=== PATIENT | male | born 1960 | race Caucasian/White ===

== ENCOUNTER 2016-09-10 08:00 | Emergency (ER) | payer OTHER ==
[~2016-09-10] VITALS: Ht 165.1 cm; Wt 73.4 kg
[~2016-09-10 08:00] MED LIST: ESOM40GR PO
[2016-09-10 08:04] VITALS: TEMP 36.6; Ht 165.1 cm; Wt 73.4 kg
[2016-09-10] MEDS ORDERED: ONDANSETRON INJ 2 MG/ML 2 ML VIAL IV STA (08:15)
[2016-09-10] MEDS ORDERED: SODIUM CHLORIDE 0.9% 1000ML 1,000 ML IV STA (08:15)
[2016-09-10 08:27] LABS: BASO % 0.4 %; BASO ABS # 0.03 K/uL (0-0.2); COMPLETE YES; EOS % 2.4 %; HEMATOCRIT 44.9 % (42-52); IG% 0.1 %; LYMPH % 23.6 %; MEAN CELL VOLUME 95.5 fL (80-100); MEAN CORPUSCULAR HEMOGLOBIN 33.2 pg (25-34); MEAN CORPUSCULAR HGB CONC 34.7 g/dl (32-36); MEAN PLATELET VOLUME 9.8 fL (7.4-10.4); NEUT % 63.5 %; PLATELET COUNT 171 K/uL (130-400); WHITE BLOOD COUNT 6.77 K/uL (4.8-10.8)
[2016-09-10 08:51] LABS: BUN/CREATININE RATIO 12.8 (10-20); CALCIUM 8.9 mg/dl (8.5-10.1); CREATININE 0.79 mg/dl (0.60-1.40); POTASSIUM 4.4 mmol/L (3.5-5.1)
[2016-09-10] MEDS ORDERED: ESOM1CAP34 PO (09:09)
[2016-09-10] MEDS ORDERED: [UNRECOGNIZED DRUG - REMARK] PO (09:09)
--- NOTE | 2016-09-10 09:49 | EMERGENCY ROOM VISIT NOTE ---
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 last night I started with n/v/d and I want to make sure the c diff didnt come back again. I have been clear of c diff since the transplant History of Present Illness The patient is a 56 year old male who presents to the Emergency Room with complaints of nausea vomiting and diarrhea since 1 AM. The patient denies any abdominal pain or any fever. The patient denies any chest pain or shortness of breath. The patient denies any urinary symptoms of frequency, urgency, dysuria or hematuria. 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 He has been free of C. difficile since the transplant. The patient has an appointment with [facility] on October 16. The patient states that he has been around others with similar symptoms. He just wants to make sure that he does not have C. difficile. Review of Systems 10 system review was performed and was negative unless stated otherwise history of present illness. Past Medical/Surgical History Medical Problems: (1) Colonoscopy (2) Diverticulosis of sigmoid colon (3) Kidney stones (4) Laceration Surgical Problems: (1) History of cholecystectomy Fecal transplant Family History Cancer Kidney disease Kidney stones Social History Smoking Status: Current Some Day Smoker Alcohol Use: occasionally Drug Use: none Marital Status: Housing Status: lives with family Occupation Status: employed Current/Historical Medications Scheduled Esomeprazole Magnesium (Esomeprazole Magnesium), 40 MG PO QAM Probiotic Product (Probiotic), 1 CAP PO DAILY [Unk Gas-Relief Med], 1 TAB PO DAILY Allergies Coded Allergies: Iodinated Diagnostic Agents (Verified Allergy, Intermediate, GENERALIZED SWELLING, HIVES, 09/10/16) Metoclopramide (Verified Adverse Reaction, Unknown, MAKES "HYPER", 09/10/16 ) Physical Exam Vital Signs Date Time Temp Pulse Resp B/P Pulse Ox O2 Delivery O2 Flow Rate FiO2 09/10/16 08:04 36.6 72 18 112/72 99 Physical Exam GENERAL: 56 year white male appears in no acute distress. MENTAL Status: Alert and oriented 3. MOUTH: Mucosa is moist NECK: Supple, no lymphadenopathy noted. No carotid bruits noted. LUNGS: Clear auscultation without wheezes rales or rhonchi. CARDIAC: Regular rate and rhythm without murmur. Pulses is full and equal throughout. BACK: No CVA tenderness noted. ABDOMEN: Positive bowel sounds all 4 quadrants. Soft, nontender to palpation without organomegaly or masses. EXTREMITIES: No cyanosis or edema noted. Medical Decision & Procedures Laboratory Results 09/10/16 08:20 Red Blood Count 4.70, Mean Corpuscular Volume 95.5, Mean Corpuscular Hemoglobin 33.2, Mean Corpuscular Hemoglobin Concent 34.7, Mean Platelet Volume 9.8, Neutrophils (%) (Auto) 63.5, Lymphocytes (%) (Auto) 23.6, Monocytes (%) (Auto) 10.0, Eosinophils (%) (Auto) 2.4, Basophils (%) (Auto) 0.4, Neutrophils # (Auto ) 4.29, Lymphocytes # (Auto) 1.60, Monocytes # (Auto) 0.68, Eosinophils # (Auto ) 0.16, Basophils # (Auto) 0.03 09/10/16 08:20 Test 09/10/16 08:20 White Blood Count 6.77 K/uL (4.8-10.8) Red Blood Count 4.70 M/uL (4.7-6.1) Hemoglobin 15.6 g/dL (14.0-18.0) Hematocrit 44.9 % (42-52) Mean Corpuscular Volume 95.5 fL (80-100) Mean Corpuscular Hemoglobin 33.2 pg (25-34) Mean Corpuscular Hemoglobin Concent 34.7 g/dl (32-36) Platelet Count 171 K/uL (130-400) Mean Platelet Volume 9.8 fL (7.4-10.4) Neutrophils (%) (Auto) 63.5 % Lymphocytes (%) (Auto) 23.6 % Monocytes (%) (Auto) 10.0 % Eosinophils (%) (Auto) 2.4 % Basophils (%) (Auto) 0.4 % Neutrophils # (Auto) 4.29 K/uL (1.4-6.5) Lymphocytes # (Auto) 1.60 K/uL (1.2-3.4) Monocytes # (Auto) 0.68 K/uL (0.11-0.59) Eosinophils # (Auto) 0.16 K/uL (0-0.5) Basophils # (Auto) 0.03 K/uL (0-0.2) RDW Standard Deviation 42.5 fL (36.4-46.3) RDW Coefficient of Variation 12.2 % (11.5-14.5) Immature Granulocyte % (Auto) 0.1 % Immature Granulocyte # (Auto) 0.01 K/uL (0.00-0.02) Anion Gap 10.0 mmol/L (3-11) Est Creatinine Clear Calc Drug Dose 90.8 ml/min Estimated GFR () 116.3 Estimated GFR (Non- 100.4 BUN/Creatinine Ratio 12.8 (10-20) Calcium Level 8.9 mg/dl (8.5-10.1) Total Bilirubin 0.4 mg/dl (0.2-1) Direct Bilirubin 0.1 mg/dl (0-0.2) Aspartate Amino Transf (AST/SGOT) 19 U/L (15-37) Alanine Aminotransferase (ALT/SGPT) 23 U/L (12-78) Alkaline Phosphatase 68 U/L (45-117) Total Protein 7.3 gm/dl (6.4-8.2) Albumin 3.9 gm/dl (3.4-5.0) Lipase 151 U/L (73-393) Date/Time Source Procedure Growth Status 09/10/16 08:30 Stool C.difficile Toxin B Gene (PCR) - Final No C. difficile toxin B gene detected Complete Medications Administered Medications (Trade) Dose Ordered Sig/Kassie Route Start Time Stop Time Status Last Admin Dose Admin Ondansetron HCl 4 mg 4 mg NOW STAT IV 09/10/16 08:15 09/10/16 08:17 DC 09/10/16 08:25 4 MG Sodium Chloride (Nss 1000ml) 1,000 ml @ 999 mls/hr Q1H1M STAT IV 09/10/16 08:15 09/10/16 09:15 DC 09/10/16 08:26 999 MLS/HR ED Course The patient was evaluated. IV access was obtained. CBC and differential, renal profile, LFTs and lipase levels were ordered. The patient was given 1 L of normal saline wide-open. She was given Zofran 4 mg IV push for nausea. Stool for C. difficile was ordered. Labs are reviewed and were unremarkable. C. difficile was negative. The patient was informed of all findings and discharged home in stable condition. The patient stated that he has Zofran at home to take as needed for nausea. Medical Decision Differential diagnosis include C. difficile, viral gastroenteritis, bacterial gastroenteritis, acute appendicitis, acute cholecystitis, colitis Impression Primary Impression: Nausea, vomiting, and diarrhea Departure Information Dispostion Home / Self-Care Condition GOOD Referrals Kodak Betancourt M.D. (PCP) Forms HOME CARE DOCUMENTATION FORM, IMPORTANT VISIT INFORMATION Patient Instructions My [facility] Additional Instructions Stay well-hydrated. Follow bland diet. Advance diet slowly as tolerated. Take Zofran as needed for nausea. If symptoms persist or worsen, return to ER immediately.
[2016-09-10 09:52] VITALS: BP 113/80; PULSE 63; O2SAT 98
[2017-03-04] MEDS ORDERED: MISCCAP80 PO (09:59)
== END 2016-09-10 09:55 | disposition home or self-care (01) ==
LOC: C.EDB 08:02 → C.EDA 09:55
DX: R11.2 Nausea with vomiting, unspecified (principal); R19.7 Diarrhea, unspecified; F17.200 Nicotine dependence, unspecified, uncomplicated

== ENCOUNTER → 2016-09-18 | Outpatient (CLI) | payer OTHER ==
[~2016-09-18] MED LIST changes: +CEPH500C2 PO; +ESOM1CAP34 PO; -ESOM40GR PO; +MISCCAP80 PO; +MULT-920 PO; +NXM/40 PO; +PRT/40 PO; +SULF800T23 PO; +ULT50 PO; +[UNRECOGNIZED DRUG - REMARK] PO
--- NOTE | 2016-10-06 09:46 | CODING QUERY NO DIAGNOSIS ---
TREATMENT RENDERED WITHOUT A DIAGNOSIS Dr. Betancourt, To promote full compliance with coding requirements relating to patient care, physician participation is requested in all cases of stabber uncertainty. Please assist us with providing a diagnosis/symptom for the test(s) below: A diagnosis/symptom was not documented on your Order. A valid diagnosis/symptom is required to bill all insurances. Please remember that we are unable to code a diagnosis of rule out, probable, possible, questionable, or suspected. Tests that require a diagnosis: * URINE CULTURE DIAGNOSIS: DATE OF SERVICE: 09/18/16 Provider Signature: Date: Thank you [facility] Information Management Once completed, please kindly fax back to [phone] For questions please call [phone]
== END | disposition home or self-care (01) ==
LOC: C.LABSPEC 10:53
PROVIDERS: ATTEND Family Medicine
DX: R30.0 Dysuria (principal)

== ENCOUNTER 2016-12-09 09:14 | Emergency (ER) | payer OTHER ==
[~2016-12-09] VITALS: Ht 165.1 cm; Wt 73.0 kg
[~2016-12-09 09:14] MED LIST changes: -CEPH500C2 PO; -MISCCAP80 PO; -MULT-920 PO; -NXM/40 PO; -PRT/40 PO; -SULF800T23 PO; -ULT50 PO
[2016-12-09 09:16] VITALS: Ht 165.1 cm; Wt 73.0 kg
--- NOTE | 2016-12-09 09:57 | EMERGENCY ROOM VISIT NOTE ---
History Report prepared by Agusto: Tracy Bauer Under the Supervision of: Dr. Mike Dennis M.D. First contact with patient: 09:35 Chief Complaint: DIARRHEA Stated Complaint: DIARRHEA X4 DAYS Nursing Triage Summary: Pt. has had diarrhea since Sun. Hx. of C-Diff. "I want to make sure I don't have it back" History of Present Illness The patient is a 56 year old male who presents to the Emergency Room with complaints of persistent diarrhea for the past 3 days. The patient had part of his sigmoid colon removed in 2015 and has gotten C diff several times since. He has received a fecal transplant 6 months ago which helped. After having diarrhea for the past 3 days, he would like to be checked for C diff. His stool is very loose and watery. He has been trying to drink plenty of liquids. Source of History: patient Onset: 3 days ago Position: other (global) Quality: other (diarrhea) Timing: other (persistent) Review of Systems All systems have been listed, reviewed, and are negative other than those previously mentioned. Please see Additional Medical History Sheet. Past Medical & Surgical Medical Problems: (1) Colonoscopy (2) Diverticulosis of sigmoid colon (3) Kidney stones (4) Laceration Surgical Problems: (1) History of cholecystectomy Family History Cancer Kidney disease Kidney stones Social History Smoking Status: Current Some Day Smoker Alcohol Use: occasionally Drug Use: none Marital Status: Housing Status: lives with family Occupation Status: employed Current/Historical Medications Scheduled Esomeprazole Magnesium (Esomeprazole Magnesium), 40 MG PO QAM Probiotic Product (Probiotic), 1 CAP PO DAILY Allergies Coded Allergies: Iodinated Diagnostic Agents (Verified Allergy, Intermediate, GENERALIZED SWELLING, HIVES, 12/09/16) Metoclopramide (Verified Adverse Reaction, Unknown, MAKES "HYPER", 12/09/16 ) Physical Exam Vital Signs Date Time Temp Pulse Resp B/P Pulse Ox O2 Delivery O2 Flow Rate FiO2 12/09/16 12:56 36.8 68 16 128/82 98 12/09/16 10:51 72 16 115/78 97 Room Air 12/09/16 09:16 36.8 94 16 116/69 95 Room Air Physical Exam GENERAL: Patient awake, alert, oriented x 3. Patient follows commands. Patient does not appear toxic. Patient is adequately hydrated and well- nourished. SKIN: No erythema, pallor, cyanosis or rash HEENT: Normal head, pupils equal, reactive to light and accommodation. LUNGS: Clear to auscultation. No wheezes, no rales, no rhonchi. HEART: No murmurs. No gallops. No rubs ABDOMEN: No masses, no rebound, no hepatomegaly or splenomegaly. Well healed subumbilical scar. EXTREMITIES: No signs of trauma or infection. NEUROLOGIC: Cranial nerves II-XII within normal limits. No gross motor sensory function deficits. Medical Decision & Procedures Laboratory Results Date/Time Source Procedure Growth Status 12/09/16 09:45 Stool C.difficile Toxin B Gene (PCR) - Final No C. difficile toxin B gene detected Complete Laboratory results as stated above per my review. ED Course 0936: Past medical records reviewed. The patient was evaluated in room A3. A complete history and physical examination was performed. 1251: Upon reevaluation, the patient appeared to have improvement of his symptoms. I discussed today's findings with him. He verbalized agreement of the treatment plan. He was discharged home. Medical Decision Differential diagnoses: viral vs bacterial diarrhea vs C diff. The patient is here for the sole reason finding out if he has another bout of C. difficile. He has had multiple times in the past. Other than diarrhea the patient is feeling well. C. difficile antigen was negative. At this time I do not believe the patient requires any intervention. He was encouraged drink extra fluids and follow-up with his family physician. Impression Primary Impression: Diarrhea Scribe Attestation The scribe's documentation has been prepared under my direction and personally reviewed by me in its entirety. I confirm that the note above accurately reflects all work, treatment, procedures, and medical decision making performed by me. Departure Information Dispostion Home / Self-Care Referrals Kodak Betancourt M.D. (PCP) Patient Instructions My [facility] Additional Instructions Drink extra fluids. Follow-up with your family physician. Continue all of your current medications as prescribed.
[2016-12-09 12:56] VITALS: BP 128/82; PULSE 68; TEMP 36.8; O2SAT 98
[2017-03-04] MEDS ORDERED: MISCCAP80 PO (09:59)
[2017-03-11] MEDS ORDERED: PANT40TA2 PO (08:19)
== END 2016-12-09 12:58 | disposition home or self-care (01) ==
LOC: C.EDB 09:16 → C.EDA 12:58
DX: R19.7 Diarrhea, unspecified (principal); K57.30 Diverticulosis of large intestine without perforation or abscess without bleeding; F17.200 Nicotine dependence, unspecified, uncomplicated; Z87.442 Personal history of urinary calculi; Z90.49 Acquired absence of other specified parts of digestive tract; Z79.899 Other long term (current) drug therapy; Z80.9 Family history of malignant neoplasm, unspecified; Z84.1 Family history of disorders of kidney and ureter

== ENCOUNTER 2017-02-23 21:58 | Emergency (ER) | payer OTHER ==
[~2017-02-23] VITALS: Ht 165.1 cm; Wt 73.3 kg
[~2017-02-23 21:58] MED LIST changes: -[UNRECOGNIZED DRUG - REMARK] PO
[2017-02-23 22:03] VITALS: TEMP 36.6; Ht 165.1 cm; Wt 73.3 kg
[2017-02-23] MEDS ORDERED: MUPIROCIN 2% OINT 22 GM TUBE EXT STA (22:42)
--- NOTE | 2017-02-23 22:56 | EMERGENCY ROOM VISIT NOTE ---
ED Visit Note First contact with patient: 22:31 CHIEF COMPLAINT: Insect bite on back HISTORY OF PRESENT ILLNESS: This 56-year-old male patient presents to the emergency department 1.5 hours after experiencing a bite on his left lower back. The patient states this evening, he was mowing his bvminn-hy-cgy's grass. When he was getting out of the truck, he experienced a sharp, biting sensation, on his left lower back. He states he swatted at the area, and felt something large fly off of his shirt. He does believe he was bitten or stung through his shirt. The patient describes the pain as stabbing on palpation, but all otherwise. He rates the pain 3/10 at rest, and increases to 4/10 on palpation. The patient denies difficulty breathing, chest pain, drainage from the wound, significant pain or tenderness. The patient states he is concerned because he has not experienced a bite of that severity in a very long time. He is curious to know if we have any idea what may have bitten him REVIEW OF SYSTEMS: A 6-system review of systems was performed with positives and pertinent negatives listed in the history of present illness. All other systems were reviewed and are negative. ALLERGIES: Metoclopramide, contrast iodine MEDICATIONS: Probiotic, Nexium, tramadol PMH: This patient does have a history of C. difficile, several times in the past. He states his physicians believe the C. difficile was antibiotic associated. SOCIAL HISTORY: The patient lives locally with his family. He denies alcohol or drug use. The patient does admit to a occasional cigarette smoking. PHYSICAL EXAM: VITALS: Vitals are noted on the nurse's note and reviewed by myself. Vital signs stable. GENERAL: 56-year-old male, in no acute distress, nondiaphoretic, well-developed well-nourished. HEENT: Normocephalic, atraumatic, no facial edema. Lips, tongue, and mucosa normal. NECK: No stridor. RESPIRATORY: Clear to auscultation. No wheezes. CARDIAC: Regular rate, normal rhythm. SKIN: There is an erythematous, tender, indurated area located on the patient's left lower back. No significant rashes or urticaria noted. There is no stinger or obvious bite jeffrey. No purulent drainage or signs of infection. NEURO: Normal sensorium. EMERGENCY DEPARTMENT COURSE: She was seen and evaluated as above. I discussed with the patient options for treatment at this time. The patient does decline antibiotics orally due to his history of C. difficile infections. He is interested in topical antibiotic ointment, and states he will watch the wound extremely closely for signs of infection. I did also offer the patient a dose of Benadryl in the emergency department. He states this medication makes him too sleepy, and he would like to take Benadryl when he gets home just before bed. Mupirocin ointment was applied, and the patient was discharged home in good condition. DIFFERENTIAL DIAGNOSIS: Bee sting, spider bite, tick bite, other insect bite, cellulitis, allergic reaction, abscess, and others DIAGNOSIS: Insect bite DISCHARGE INSTRUCTIONS & TREATMENT: Take 25-50 mg of Benadryl when you get home this evening to help with swelling. You may continue to take Benadryl as directed if necessary for ongoing reaction. Use mupirocin ointment 3 times daily for 5-7 days until bite seems to have healed. Monitor the wound for increased redness, drainage, warmth, pus, abscess formation, or ulceration. If any of these occur, seek care by the emergency department or your family doctor. You should also watch for symptoms including fever, chills, nausea, vomiting, body aches, headache, confusion, altered mental status, difficulty breathing, facial swelling, racing heart, or other concerning symptoms. If any of these occur, please seek care in the emergency Department immediately. You should follow up with your family doctor in 2-3 days for ongoing care and repeat evaluation of the wound. Problem List Medical Problems: (1) Colonoscopy Status: Resolved (2) Diverticulosis of sigmoid colon Status: Chronic (3) Kidney stones Status: Chronic (4) Laceration Status: Resolved Surgical Problems: (1) History of cholecystectomy Status: Resolved Current/Historical Medications Scheduled Esomeprazole Magnesium (Nexium), 40 MG PO DAILY Probiotic Product (Probiotic), 1 CAP PO DAILY Scheduled PRN Tramadol HCl (Tramadol HCl), 50 MG PO UD PRN for Abdominal Pain Allergies Coded Allergies: Iodinated Diagnostic Agents (Verified Allergy, Intermediate, GENERALIZED SWELLING, HIVES, 12/09/16) Metoclopramide (Verified Adverse Reaction, Unknown, MAKES "HYPER", 12/09/16 ) Vital Signs Date Time Temp Pulse Resp B/P (MAP) Pulse Ox O2 Delivery O2 Flow Rate FiO2 02/23/17 22:58 90 18 108/87 97 02/23/17 22:03 36.6 100 18 123/75 93 Room Air Medications Administered Medications (Trade) Dose Ordered Sig/Kassie Route Start Time Stop Time Status Last Admin Dose Admin Mupirocin (Bactroban 2% Oint) 1 appln ONE STAT EXT 02/23/17 22:42 02/23/17 22:44 DC 02/23/17 22:55 66 APPLN Departure Information Impression Primary Impression: Insect bites Dispostion Home / Self-Care Condition GOOD Referrals Kodak Betancourt M.D. (PCP) Patient Instructions My [facility] Additional Instructions Take 25-50 mg of Benadryl when you get home this evening to help with swelling. You may continue to take Benadryl as directed if necessary for ongoing reaction. Use mupirocin ointment 3 times daily for 5-7 days until bite seems to have healed. Monitor the wound for increased redness, drainage, warmth, pus, abscess formation, or ulceration. If any of these occur, seek care by the emergency department or your family doctor. You should also watch for symptoms including fever, chills, nausea, vomiting, body aches, headache, confusion, altered mental status, difficulty breathing, facial swelling, racing heart, or other concerning symptoms. If any of these occur, please seek care in the emergency Department immediately. You should follow up with your family doctor in 2-3 days for ongoing care and repeat evaluation of the wound. Problem Qualifiers Primary Impression: Insect bites Encounter type: initial encounter Qualified Codes: W57.XXXA - Bitten or stung by nonvenomous insect and other nonvenomous arthropods, initial encounter
[2017-02-23 22:58] VITALS: BP 108/87; PULSE 90; O2SAT 97
[2017-02-24] MEDS ORDERED: CEPH500C2 PO (19:58)
[2017-03-04] MEDS ORDERED: MISCCAP80 PO (09:59)
== END 2017-02-23 22:59 | disposition home or self-care (01) ==
LOC: C.EDB 21:59 → C.EDA 22:59
DX: S30.860A Insect bite (nonvenomous) of lower back and pelvis, initial encounter (principal); W57.XXXA Bitten or stung by nonvenomous insect and other nonvenomous arthropods, initial encounter; Y92.89 Other specified places as the place of occurrence of the external cause; F17.210 Nicotine dependence, cigarettes, uncomplicated; K57.30 Diverticulosis of large intestine without perforation or abscess without bleeding; Z87.442 Personal history of urinary calculi; Z79.899 Other long term (current) drug therapy

== ENCOUNTER 2017-02-24 19:35 | Emergency (ER) | payer OTHER ==
[~2017-02-24] VITALS: Ht 165.1 cm; Wt 73.7 kg
[2017-02-24 19:39] VITALS: BP 122/77; PULSE 109; TEMP 37; O2SAT 95; Ht 165.1 cm; Wt 73.7 kg
--- NOTE | 2017-02-24 19:54 | EMERGENCY ROOM VISIT NOTE ---
ED Visit Note First contact with patient: 19:46 CHIEF COMPLAINT: Worsening insect bite HISTORY OF PRESENT ILLNESS: This 56-year-old male presents the ER with chief complaint of worsening redness around the insect bite. The patient states that he was seen here last night for the bite and was placed on antibiotic ointment and instructed to take Benadryl. The patient has been compliant. The patient now knows that it was a wasp that stung him since his told him there was a nest nearby the area where he got stung. He states it looked like it was getting better this morning and then this afternoon it started getting red and the area got much larger. The patient denies any fever. The patient has a history of C. difficile and is very leery about receiving antibiotics. REVIEW OF SYSTEMS: 6 system review was performed and was negative unless stated otherwise in history of present illness. PMH: The patient is healthy; C. difficile SOCIAL HISTORY: Patient lives with his . The patient admits to occasional tobacco use but denies any alcohol use. PHYSICAL EXAM: Vital Signs: Were reviewed Reviewed Nurse's notes. GENERAL: 56- year-old white male appears in no acute distress. MENTAL Status: Alert and oriented 3. SKIN: On the left lower back there is a red indurated area with a central punctate nancy consistent with a sting. There is surrounding erythema which is warm to the touch. EMERGENCY COURSE: The patient was given Keflex 500 mg by mouth. The patient was discharged home in stable condition. DIAGNOSIS: Bee sting with associated cellulitis DISCHARGE INSTRUCTIONS & TREATMENT: Continue Benadryl as directed. Take Keflex as prescribed. If symptoms persist or worsen, follow-up with your family doctor or return to ER. Problem List Medical Problems: (1) Colonoscopy Status: Resolved (2) Diverticulosis of sigmoid colon Status: Chronic (3) Kidney stones Status: Chronic (4) Laceration Status: Resolved Surgical Problems: (1) History of cholecystectomy Status: Resolved Current/Historical Medications Scheduled Esomeprazole Magnesium (Nexium), 40 MG PO DAILY Probiotic Product (Probiotic), 1 CAP PO DAILY Scheduled PRN Tramadol HCl (Tramadol HCl), 25 MG PO UD PRN for Abdominal Pain Allergies Coded Allergies: Iodinated Diagnostic Agents (Verified Allergy, Intermediate, GENERALIZED SWELLING, HIVES, 02/24/17) Metoclopramide (Verified Adverse Reaction, Unknown, MAKES "HYPER", 02/24/17) Vital Signs Date Time Temp Pulse Resp B/P (MAP) Pulse Ox O2 Delivery O2 Flow Rate FiO2 02/24/17 19:39 37.0 109 20 122/77 95 Room Air Departure Information Referrals Kodak Betancourt M.D. (PCP) Patient Instructions My [facility]
[2017-02-24] MEDS ORDERED: CEPH500C2 PO (19:58)
[2017-02-24] MEDS ORDERED: CEPHALEXIN MONOHYDRATE 250 MG CAP PO ONE (20:00)
[2017-02-25] MEDS ORDERED: CEPH500C2 PO (15:02)
[2017-02-25] MEDS ORDERED: SULF800T23 PO (15:30)
[2017-03-04] MEDS ORDERED: MISCCAP80 PO (09:59)
== END 2017-02-24 20:06 | disposition home or self-care (01) ==
LOC: C.EDB 19:35 → C.EDD 20:06
DX: L03.312 Cellulitis of back [any part except buttock and flank] (principal); S30.860A Insect bite (nonvenomous) of lower back and pelvis, initial encounter; W57.XXXA Bitten or stung by nonvenomous insect and other nonvenomous arthropods, initial encounter

== ENCOUNTER 2017-02-25 14:25 | Emergency (ER) | payer OTHER ==
[~2017-02-25] VITALS: Ht 165.1 cm; Wt 73.5 kg
[~2017-02-25 14:25] MED LIST changes: +CEPH500C2 PO; -ESOM1CAP34 PO
[2017-02-25 14:28] VITALS: TEMP 36.7; Ht 165.1 cm; Wt 73.5 kg
[2017-02-25] MEDS ORDERED: RABIES VACCINE (IMOVAX) HUMAN DIPL CELL 2.5 INTER.UNIT/ML SYR IM. ONE (15:00)
[2017-02-25] MEDS ORDERED: RABIES IMMUNE GLOBULIN (HUMAN) 150 INTER.UNIT/ML 2 ML VIAL IM. ONE (15:00)
[2017-02-25] MEDS ORDERED: CEPH500C2 PO (15:02)
[2017-02-25] MEDS ORDERED: SULF800T23 PO (15:30)
--- NOTE | 2017-02-25 15:30 | EMERGENCY ROOM VISIT NOTE ---
ED Visit Note First contact with patient: 14:30 CHIEF COMPLAINT: Bite to left hip HISTORY OF PRESENT ILLNESS: This 56-year-old male patient presents to the emergency department ambulatory. There is concern for rabies exposure. The patient states that a few days ago he felt something bite the area of his left hip. The patient states that he was outside and he felt something sharp that his hip. He states that he rest his hand against his hip and felt something solid there. He initially thought that it was just a wasp but upon further reflection, he thinks that it could have been a larger animal such as a bat. The patient was initially seen here and given Bactroban. He came back last night because he had worsening erythema. He was started on Keflex. The patient is very hesitant to take any antibiotics because he has had C. difficile 5 and has ultimately had a fecal transplant. The patient denies any fevers. He rates his discomfort a 3/10. He feels as though the redness is worsening. Additionally, after speaking to several medical providers, he was encouraged to consider rabies vaccination series. REVIEW OF SYSTEMS: A 6 system review of systems was completed with positives and pertinent negatives listed in the HPI. ALLERGIES: Iodinated contrast media, metoclopramide MEDICATIONS: See nursing notes PMH: C. difficile. SOCIAL HISTORY: The patient lives locally with family. He smokes occasionally. PHYSICAL EXAM: Vital Signs: Reviewed Nurse's notes, vital signs stable. GENERAL : This is a 56-year-old male, in no acute distress, well-developed, well- nourished. HEAD: Atraumatic, without temporal or scalp tenderness. EYES: PERRLA, EOMI, no discharge or injection. SKIN: There is an area of erythema to the left hip. There is an area that approximately 3 cm in diameter of dark red erythema with warmth. There is surrounding erythema in erythema that is macular and extends an additional 3-4 cm. There is no fluctuance. There is no drainage. Capillary refill less than 2 seconds. NEUROLOGICAL: Alert and oriented to person place and time. Normal sensation to light and sharp touch. MUSCULOSKELETAL: Motor functions grossly intact of the arms and legs. Full range of motion. There is mild tenderness []. EMERGENCY DEPARTMENT COURSE: I examined the patient. The patient was bitten by something which in retrospect he thinks could possibly have been a bat. The patient was given RIG 20 Units/kg. I injected 1cc of immunoglobulin in the area as well. The patient was given Imovax 1ml IM. The patient was observed for 20 minutes with no reaction. The area of erythema to the left hip could potentially represent cellulitis or localized allergic reaction. The patient has had just 2 doses of Keflex and it is unclear if this represents a treatment failure. I am concerned for the possibility of MRSA. I did recommend adding Bactrim to the regimen. The patient is very hesitant about taking any antibiotics due to his history of C. difficile. After lengthy discussion, the patient would like to continue the Keflex but will accept a prescription for Bactrim if it is not improving. I also took a culture of the skin in the area of inflammation. The patient will be returning in 3 days for his next rabies vaccination and the wound can be rechecked at that time. Lastly, erythema migrans is considered; however, the patient is adamant that he felt something bite him. He states that he had an instant pain. He feels fairly confident that this was not a bite from a tick. The patient was discharged home in stable condition. DISCHARGE INSTRUCTIONS: Today is day 0. Return to the ER on days 3, 7, 14 subsequent vaccinations. Return sooner or follow up with your family doctor for signs of infection (increased redness, discharge, fever) or for complications with the vaccine series. 02/28/17 03/04/17 03/11/17 Continue the Keflex. Start the Bactrim if no improvement in 24 hours. Return with worsening redness, swelling, drainage, fevers Problem List Medical Problems: (1) Colonoscopy Status: Resolved (2) Diverticulosis of sigmoid colon Status: Chronic (3) Kidney stones Status: Chronic (4) Laceration Status: Resolved Surgical Problems: (1) History of cholecystectomy Status: Resolved Current/Historical Medications Scheduled Cephalexin Monohydrate (Keflex), 500 MG PO QID Esomeprazole Magnesium (Nexium), 40 MG PO DAILY Probiotic Product (Probiotic), 1 CAP PO DAILY Sulfa/Trimethoprim (Bactrim Ds 800MG/160MG), 1 TAB PO BID Scheduled PRN Tramadol HCl (Tramadol HCl), 25 MG PO UD PRN for Abdominal Pain Allergies Coded Allergies: Iodinated Diagnostic Agents (Verified Allergy, Intermediate, GENERALIZED SWELLING, HIVES, 02/25/17) Metoclopramide (Verified Adverse Reaction, Unknown, MAKES "HYPER", 02/25/17) Vital Signs Date Time Temp Pulse Resp B/P (MAP) Pulse Ox O2 Delivery O2 Flow Rate FiO2 02/25/17 16:39 80 16 108/85 94 02/25/17 16:32 80 16 108/85 94 Room Air 02/25/17 14:28 36.7 99 16 127/61 96 Room Air Medications Administered Medications (Trade) Dose Ordered Sig/Kassie Route Start Time Stop Time Status Last Admin Dose Admin Rabies Vaccine Human Diploid Cell (Imovax Rabies) 2.5 interunit ONCE ONCE IM. 02/25/17 15:00 02/25/17 15:01 DC 02/25/17 15:51 2.5 INTERUNIT Rabies Immune Globulin (Imogam Rabies Inj) 1,470 interunit ONCE ONCE IM. 02/25/17 15:00 02/25/17 15:01 DC 02/25/17 15:50 1,470 INTERUNIT Departure Information Impression Primary Impression: Cellulitis Dispostion Home / Self-Care Condition GOOD Prescriptions Sulfa/Trimethoprim (Bactrim Ds 800MG/160MG) Tab 1 TAB PO BID for 10 Days, #20 TAB Prov: Sheila Sanchez PA-C 02/25/17 Referrals Kodak Betancourt M.D. (PCP) Patient Instructions Cellulitis - [facility], [facility], Rabies Additional Instructions Today is day 0. Return to the ER on days 3, 7, 14 subsequent vaccinations. Return sooner or follow up with your family doctor for signs of infection ( increased redness, discharge, fever) or for complications with the vaccine series. 02/28/17 03/04/17 03/11/17 Continue the Keflex. Start the Bactrim if no improvement in 24 hours. Return with worsening redness, swelling, drainage, fevers Problem Qualifiers Primary Impression: Cellulitis Site of cellulitis: extremity Site of cellulitis of extremity: lower extremity Laterality: left Qualified Codes: L03.116 - Cellulitis of left lower limb
[2017-02-25 16:39] VITALS: BP 108/85; PULSE 80; O2SAT 94
[2017-03-04] MEDS ORDERED: MISCCAP80 PO (09:59)
== END 2017-02-25 16:40 | disposition home or self-care (01) ==
LOC: C.EDB 14:27 → C.EDD 16:40
DX: L03.116 Cellulitis of left lower limb (principal); A04.7 Enterocolitis due to Clostridium difficile; X58.XXXA Exposure to other specified factors, initial encounter; Z23 Encounter for immunization; Z20.3 Contact with and (suspected) exposure to rabies

== ENCOUNTER 2017-02-28 16:18 | Emergency (ER) | payer OTHER ==
[~2017-02-28] VITALS: Ht 165.1 cm; Wt 74.6 kg
[~2017-02-28 16:18] MED LIST changes: +SULF800T23 PO
[2017-02-28 16:40] VITALS: BP 178/90; PULSE 101; TEMP 36.9; O2SAT 95; Ht 165.1 cm; Wt 74.6 kg
[2017-02-28] MEDS ORDERED: RABIES VACCINE (IMOVAX) HUMAN DIPL CELL 2.5 INTER.UNIT/ML SYR IM. ONE (17:15)
--- NOTE | 2017-02-28 17:18 | EMERGENCY ROOM VISIT NOTE ---
ED Visit Note First contact with patient: 16:49 CHIEF COMPLAINT: Rabies prophylaxis HISTORY OF PRESENT ILLNESS: This 6-year-old male patient presents to the emergency department ambulatory for their second rabies shot. The patient has not had any complications from the previous injections. They deny any other complaints. REVIEW OF SYSTEMS: A 6 system review of systems was completed with positives and pertinent negatives listed in the HPI. ALLERGIES: Iodinated contrast media, metoclopramide MEDICATIONS: Unchanged from previous PMH: Unchanged from previous visit. PHYSICAL EXAM: Vital Signs: Reviewed Nurse's notes, vital signs stable. GENERAL : This is a 56-year-old male, in no acute distress, well-developed, well- nourished. HEAD: Atraumatic, without temporal or scalp tenderness. EYES: PERRLA, EOMI, no discharge or injection. SKIN: Improving erythema to the left hip. NEUROLOGICAL: Alert and cooperative. Sensory and motor functions grossly intact. EMERGENCY DEPARTMENT COURSE: I examined the patient. The patient was given Imovax 1ml IM. The patient was observed for 20 minutes with no reaction. The patient had an area of erythema to the left hip. This could potentially have represented a cellulitis or a localized allergic reaction. It has markedly improved. The patient has a history of recurrent C. difficile and is very concerned about taking antibiotics. I advised him that he could try taking the Keflex 2 or 3 times a day instead of 4 times daily. He should return with any worsening symptoms. Otherwise, he should follow up for his continued immunizations. The patient was discharged home in stable condition. DIAGNOSIS: Rabies prophylaxis DISCHARGE INSTRUCTIONS: Continue vaccination schedule as directed. Return for any complications. You may decrease the keflex to every 8 hours or every 12 hours and try to take it for the next 1-2 days. Problem List Medical Problems: (1) Colonoscopy Status: Resolved (2) Diverticulosis of sigmoid colon Status: Chronic (3) Kidney stones Status: Chronic (4) Laceration Status: Resolved Surgical Problems: (1) History of cholecystectomy Status: Resolved Current/Historical Medications Scheduled Cephalexin Monohydrate (Keflex), 500 MG PO QID Esomeprazole Magnesium (Nexium), 40 MG PO DAILY Probiotic Product (Probiotic), 1 CAP PO DAILY Scheduled PRN Tramadol HCl (Tramadol HCl), 25 MG PO UD PRN for Abdominal Pain Allergies Coded Allergies: Iodinated Diagnostic Agents (Verified Allergy, Intermediate, GENERALIZED SWELLING, HIVES, 02/28/17) Metoclopramide (Verified Adverse Reaction, Unknown, MAKES "HYPER", 02/28/17 ) Vital Signs Date Time Temp Pulse Resp B/P (MAP) Pulse Ox O2 Delivery O2 Flow Rate FiO2 02/28/17 16:40 36.9 101 18 178/90 95 Room Air Medications Administered Medications (Trade) Dose Ordered Sig/Kassie Route Start Time Stop Time Status Last Admin Dose Admin Rabies Vaccine Human Diploid Cell (Imovax Rabies) 2.5 interunit ONCE ONCE IM. 02/28/17 17:15 02/28/17 17:16 DC 02/28/17 17:16 2.5 INTERUNIT Departure Information Impression Primary Impression: Rabies, need for prophylactic vaccination against Additional Impression: Cellulitis Dispostion Home / Self-Care Condition GOOD Referrals Kodak Betancourt M.D. (PCP) Patient Instructions My [facility] Additional Instructions Continue vaccination schedule as directed. Return for any complications. You may decrease the keflex to every 8 hours or every 12 hours and try to take it for the next 1-2 days. Problem Qualifiers
[2017-03-04] MEDS ORDERED: MISCCAP80 PO (09:59)
== END 2017-02-28 17:45 | disposition home or self-care (01) ==
LOC: C.EDB 16:19 → C.EDD 17:45
DX: Z20.3 Contact with and (suspected) exposure to rabies (principal); Z23 Encounter for immunization; L03.116 Cellulitis of left lower limb; Z87.442 Personal history of urinary calculi; K57.30 Diverticulosis of large intestine without perforation or abscess without bleeding

== ENCOUNTER 2017-03-04 17:42 | Emergency (ER) | payer OTHER ==
[~2017-03-04] VITALS: Ht 165.1 cm; Wt 73.6 kg
[~2017-03-04 17:42] MED LIST changes: +MISCCAP80 PO; -SULF800T23 PO
[2017-03-04 17:45] VITALS: BP 121/81; PULSE 84; TEMP 37.1; O2SAT 95; Ht 165.1 cm; Wt 73.6 kg
[2017-03-04] MEDS ORDERED: RABIES VACCINE (IMOVAX) HUMAN DIPL CELL 2.5 INTER.UNIT/ML SYR IM. ONE (18:00)
--- NOTE | 2017-03-04 18:06 | EMERGENCY ROOM VISIT NOTE ---
History First contact with patient: 17:47 Chief Complaint: RABIES VACCINE REPEAT VISIT Stated Complaint: 3RD RABIES INJECTION History of Present Illness The patient is a 56 year old male who presents to the Emergency Room for his third Imovax injection after sustaining a bite 1 week ago while outside. It is uncertain whether this was an insect bite or possibly a bat bite. The patient reports that he has completed his Keflex antibiotics as recommended on a previous visit. He reports that the redness over the left hip is improving. He denies any recent fevers or chills, joint pain or back pain. The patient has tolerated his Imovax injections without adverse reaction. He denies any pain. Review of Systems 6 system review was performed and was negative except for pertinent positives and negatives as indicated in history of present illness Past Medical/Surgical History Medical Problems: (1) Colonoscopy (2) Diverticulosis of sigmoid colon (3) Kidney stones (4) Laceration Surgical Problems: (1) History of cholecystectomy Family History Cancer Kidney disease Kidney stones Social History Smoking Status: Never Smoker Alcohol Use: occasionally Drug Use: none Marital Status: Housing Status: lives with family Occupation Status: employed Current/Historical Medications Scheduled Cephalexin Monohydrate (Keflex), 500 MG PO QID Esomeprazole Magnesium (Nexium), 40 MG PO DAILY Probiotic Product (Probiotic), 1 CAP PO DAILY Scheduled PRN Tramadol HCl (Tramadol HCl), 25 MG PO UD PRN for Abdominal Pain Allergies Coded Allergies: Iodinated Diagnostic Agents (Verified Allergy, Intermediate, GENERALIZED SWELLING, HIVES, 02/28/17) Metoclopramide (Verified Adverse Reaction, Unknown, MAKES "HYPER", 02/28/17 ) Physical Exam Vital Signs Date Time Temp Pulse Resp B/P (MAP) Pulse Ox O2 Delivery O2 Flow Rate FiO2 03/04/17 17:45 37.1 84 20 121/81 95 Room Air Physical Exam CONSTITUTIONAL: Healthy and well nourished. Alert and oriented X 3 with positive affect. INTEGUMENTARY: Examination of the left lateral and lower abdomen/hip region shows mild erythema about the site of the previous plate. There is no significant increased warmth to palpation, induration or fluctuance at the center of the wound. NEUROLOGIC: No focal neurologic deficits noted. Medical Decision & Procedures ED Course Patient history and physical exam were performed. Nurse's notes were reviewed. I did review documentation from his most recent ED visits. The patient was administered Imovax IM without adverse reaction. The patient will return in one week for his final Imovax injection, sooner with any wound concerns. Medical Decision Impression Primary Impression: Rabies, need for prophylactic vaccination against Additional Impression: Bite wound of skin Departure Information Dispostion Home / Self-Care Forms HOME CARE DOCUMENTATION FORM, IMPORTANT VISIT INFORMATION Patient Instructions My [facility] Additional Instructions Return next Sunday for your final Imovax injection Problem Qualifiers
[2017-03-04] MEDS ORDERED: NXM/40 PO (22:41)
[2017-03-04] MEDS ORDERED: ULT50 PO (22:41)
== END 2017-03-04 18:14 | disposition home or self-care (01) ==
LOC: C.EDB 17:43 → C.EDD 18:14
DX: Z23 Encounter for immunization (principal); Z20.3 Contact with and (suspected) exposure to rabies; Z87.442 Personal history of urinary calculi; Z90.49 Acquired absence of other specified parts of digestive tract; Z98.890 Other specified postprocedural states; Z84.1 Family history of disorders of kidney and ureter

== ENCOUNTER 2017-03-11 07:27 | Emergency (ER) | payer OTHER ==
[~2017-03-11] VITALS: Ht 165.1 cm; Wt 73.8 kg
[~2017-03-11 07:27] MED LIST changes: -CEPH500C2 PO; +NXM/40 PO; +ULT50 PO
[2017-03-11 07:33] VITALS: TEMP 36.7; Ht 165.1 cm; Wt 73.8 kg
[2017-03-11] MEDS ORDERED: SODIUM CHLORIDE 0.9% 1000ML 1,000 ML IV STA (07:49)
[2017-03-11] MEDS ORDERED: RABIES VACCINE (IMOVAX) HUMAN DIPL CELL 2.5 INTER.UNIT/ML SYR IM. ONE (08:00)
--- NOTE | 2017-03-11 08:07 | EMERGENCY ROOM VISIT NOTE ---
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 The patient has a history of recurrent C. difficile that was refractory to oral treatment and was only resolved with a fecal transplant. The patient was seen here multiple times over the last several weeks for what seemed to be a bite to the left hip. Initially, he was given antibiotic ointment but it seemed to worsen a returned. He was then placed on Keflex. When he returned last week for a recheck, the area of erythema had markedly improved. He was concerned about the antibiotics and was advised to take it only twice a day. He states he finished the antibiotics and had done well until the last 3 days that he has had loose stool. He denies any fevers. He denies any significant abdominal pain. He denies any chest pain or trouble breathing. Review of Systems A 10 system review of systems was completed with positives and pertinent negatives listed in the HPI. Past Medical/Surgical History Medical Problems: (1) C. difficile colitis (2) Colonoscopy (3) Diverticulosis of sigmoid colon (4) Kidney stones (5) Laceration Surgical Problems: (1) History of cholecystectomy (2) History of colon resection Family History Cancer Kidney disease Kidney stones Social History Smoking Status: Current Some Day Smoker Alcohol Use: occasionally Drug Use: none Marital Status: Housing Status: lives with family Occupation Status: employed Current/Historical Medications Scheduled Esomeprazole Magnesium (Nexium), 40 MG PO DAILY Pantoprazole (Pantoprazole Sodium), 1 TAB PO DAILY Probiotic Product (Probiotic), 1 CAP PO DAILY Scheduled PRN Tramadol HCl (Tramadol HCl), 25 MG PO HS PRN for Abdominal Pain Physical Exam Vital Signs Date Time Temp Pulse Resp B/P (MAP) Pulse Ox O2 Delivery O2 Flow Rate FiO2 03/11/17 10:33 68 20 119/73 96 03/11/17 07:33 36.7 86 18 127/81 99 Room Air Physical Exam VITALS: Vitals are noted on the nurse's note and reviewed by myself. Vital signs stable. The patient is afebrile. GENERAL: This is a 56-year-old male, in no acute distress, nondiaphoretic, well- developed well-nourished. SKIN: The skin was without rashes, erythema, edema, or bruising. There is no tenting of the skin. Capillary reflex less than 2 seconds. HEAD: Normocephalic atraumatic. EARS: The external ears are normal in appearance. EYES: Pupils equal round and reactive to light and accommodation. Conjunctivae without injection, sclerae without icterus. Extraocular movements intact. NOSE: Patent, turbinates without inflammation or discharge. MOUTH: Mucous membranes moist. Tonsils are not enlarged. Pharynx without erythema or exudate. Uvula midline. Airway patent. Tongue does not deviate. NECK: Supple without nuchal rigidity. No lymphadenopathy. No thyromegaly. Cervical spine is nontender. No JVD. HEART: Regular rate and rhythm without murmurs gallops or rubs. LUNGS: Clear to auscultation bilaterally without wheezes, rales or rhonchi. No retractions or accessory muscle use. ABDOMEN: Positive bowel sounds x 4. Soft, nontender, without masses or organomegaly. MUSCULOSKELETAL: No muscle atrophy, erythema, or edema noted. Full range of motion in all extremities. Strength 5/5 throughout. NEURO: Patient was alert and oriented to person place and time. No focal neurological deficits. Medical Decision & Procedures Laboratory Results 03/11/17 08:20 Red Blood Count 4.36, Mean Corpuscular Volume 96.8, Mean Corpuscular Hemoglobin 33.9, Mean Corpuscular Hemoglobin Concent 35.1, Mean Platelet Volume 9.7, Neutrophils (%) (Auto) 52.0, Lymphocytes (%) (Auto) 35.9, Monocytes (%) (Auto) 8.3, Eosinophils (%) (Auto) 3.0, Basophils (%) (Auto) 0.6, Neutrophils # (Auto) 2.43, Lymphocytes # (Auto) 1.68, Monocytes # (Auto) 0.39, Eosinophils # (Auto) 0.14, Basophils # (Auto) 0.03 03/11/17 08:20 Test 03/11/17 08:20 White Blood Count 4.68 K/uL (4.8-10.8) Red Blood Count 4.36 M/uL (4.7-6.1) Hemoglobin 14.8 g/dL (14.0-18.0) Hematocrit 42.2 % (42-52) Mean Corpuscular Volume 96.8 fL (80-100) Mean Corpuscular Hemoglobin 33.9 pg (25-34) Mean Corpuscular Hemoglobin Concent 35.1 g/dl (32-36) Platelet Count 176 K/uL (130-400) Mean Platelet Volume 9.7 fL (7.4-10.4) Neutrophils (%) (Auto) 52.0 % Lymphocytes (%) (Auto) 35.9 % Monocytes (%) (Auto) 8.3 % Eosinophils (%) (Auto) 3.0 % Basophils (%) (Auto) 0.6 % Neutrophils # (Auto) 2.43 K/uL (1.4-6.5) Lymphocytes # (Auto) 1.68 K/uL (1.2-3.4) Monocytes # (Auto) 0.39 K/uL (0.11-0.59) Eosinophils # (Auto) 0.14 K/uL (0-0.5) Basophils # (Auto) 0.03 K/uL (0-0.2) RDW Standard Deviation 44.7 fL (36.4-46.3) RDW Coefficient of Variation 12.5 % (11.5-14.5) Immature Granulocyte % (Auto) 0.2 % Immature Granulocyte # (Auto) 0.01 K/uL (0.00-0.02) Urine Color YELLOW Urine Appearance CLEAR (CLEAR) Urine pH 8.0 (4.5-7.5) Urine Specific [place] 1.017 (1.000-1.030) Urine Protein NEG (NEG) Urine Glucose (UA) NEG (NEG) Urine Ketones NEG (NEG) Urine Occult Blood NEG (NEG) Urine Nitrite NEG (NEG) Urine Bilirubin NEG (NEG) Urine Urobilinogen NEG (NEG) Urine Leukocyte Esterase NEG (NEG) Anion Gap 5.0 mmol/L (3-11) Est Creatinine Clear Calc Drug Dose 85.4 ml/min Estimated GFR () 113.4 Estimated GFR (Non- 97.9 BUN/Creatinine Ratio 13.3 (10-20) Calcium Level 8.8 mg/dl (8.5-10.1) Magnesium Level 1.8 mg/dl (1.8-2.4) Total Bilirubin 0.5 mg/dl (0.2-1) Aspartate Amino Transf (AST/SGOT) 19 U/L (15-37) Alanine Aminotransferase (ALT/SGPT) 23 U/L (12-78) Alkaline Phosphatase 63 U/L (45-117) Total Protein 7.2 gm/dl (6.4-8.2) Albumin 3.7 gm/dl (3.4-5.0) Globulin 3.5 gm/dl (2.5-4.0) Albumin/Globulin Ratio 1.1 (0.9-2) Lipase 130 U/L (73-393) Date/Time Source Procedure Growth Status 03/11/17 08:20 Stool C.difficile Toxin B Gene (PCR) - Final No C. difficile toxin B gene detected Complete Medications Administered Medications (Trade) Dose Ordered Sig/Kassie Route Start Time Stop Time Status Last Admin Dose Admin Sodium Chloride 1,000 ml @ 999 mls/hr Q1H1M STAT IV 03/11/17 07:49 03/11/17 08:49 DC 03/11/17 07:49 999 MLS/HR Rabies Vaccine Human Diploid Cell (Imovax Rabies) 2.5 interunit ONCE ONCE IM. 03/11/17 08:00 03/11/17 08:01 DC 03/11/17 08:09 2.5 INTERUNIT ED Course The patient was seen and examined. Previous visits were reviewed. The patient does not have a fever or leukocytosis. He does not have any significant electrolyte abnormality. C. difficile was negative. The patient was given Imovax injection The patient presented for his last rabies shot. Additionally, the patient has had diarrhea, possibly secondary to recent antibiotic use. He has a history of recurrent C. difficile that was refractory to treatment except fecal transplant. The patient has had diarrhea for the last 3 days. He was concerned that he could have C. difficile again. He still sample was obtained and was negative for C. difficile. The patient was advised to monitor closely and to follow-up with his family doctor or his specialists if the diarrhea persists. The case was discussed with Dr. Dennis who agrees with the assessment and treatment plan. Medical Decision DIFFERENTIAL DIAGNOSIS: Hepatitis, cholecystitis, cholangitis, biliary colic, pancreatitis, pneumonia, subdiaphragmatic abscess, appendicitis, inguinal hernia , nephrolithiasis, inflammatory bowel disease, mesenteric adenitis, peptic ulcer disease, GERD, gastritis, pancreatitis, myocardial infarction, pericarditis, ruptured aortic aneurysm, appendicitis, gastroenteritis, bowel obstruction, splenic infarct, diverticulitis, mesenteric ischemia, metabolic, peritonitis, among others. Medication Reconcilliation Current Medication List: was personally reviewed by me Blood Pressure Screening Patient's blood pressure: Normal blood pressure Blood pressure disposition: Did not require urgent referral Impression Primary Impression: Rabies, need for prophylactic vaccination against Additional Impression: Diarrhea Departure Information Dispostion Home / Self-Care Condition GOOD Referrals Kodak Betancourt M.D. (PCP) Patient Instructions My [facility] Additional Instructions Return with worsening symptoms or change in symptoms, fever Problem Qualifiers Additional Impression: Diarrhea Diarrhea type: unspecified type Qualified Codes: R19.7 - Diarrhea, unspecified
[2017-03-11] MEDS ORDERED: PRT/40 PO (08:19)
[2017-03-11 08:47] LABS: URINE APPEARANCE CLEAR (CLEAR); URINE BILIRUBIN NEG (NEG); URINE COLOR YELLOW; URINE NITRITE NEG (NEG); URINE SPECIFIC GRAVITY 1.017 (1.000-1.030); UROBILINOGEN NEG (NEG); ZZUR CULT IF INDIC CLEAN CATCH NO
[2017-03-11 08:49] LABS: BASO % 0.6 %; BASO ABS # 0.03 K/uL (0-0.2); COMPLETE YES; HEMATOCRIT 42.2 % (42-52); IG% 0.2 %; LYMPH % 35.9 %; LYMPH ABS # 1.68 K/uL (1.2-3.4); MEAN CELL VOLUME 96.8 fL (80-100); MEAN CORPUSCULAR HEMOGLOBIN 33.9 pg (25-34); MEAN CORPUSCULAR HGB CONC 35.1 g/dl (32-36); MEAN PLATELET VOLUME 9.7 fL (7.4-10.4); MONO % 8.3 %; PLATELET COUNT 176 K/uL (130-400); RED BLOOD COUNT 4.36 M/uL (4.7-6.1); WHITE BLOOD COUNT 4.68 K/uL (4.8-10.8)
[2017-03-11 08:55] LABS: BUN/CREATININE RATIO 13.3 (10-20); CALCIUM 8.8 mg/dl (8.5-10.1); CREATININE 0.84 mg/dl (0.60-1.40); MAGNESIUM 1.8 mg/dl (1.8-2.4); POTASSIUM 4.2 mmol/L (3.5-5.1)
[2017-03-11 08:58] LABS: ALB/GLOB RATIO 1.1 (0.9-2)
[2017-03-11 09:01] LABS: MANUAL MICROSCOPIC REQUIRED? NO; REVIEW REQ? NO
[2017-03-11 10:33] VITALS: BP 119/73; PULSE 68; O2SAT 96
== END 2017-03-11 10:58 | disposition home or self-care (01) ==
LOC: C.EDB 07:28
DX: Z20.3 Contact with and (suspected) exposure to rabies (principal); Z23 Encounter for immunization; R19.7 Diarrhea, unspecified; Z87.442 Personal history of urinary calculi; Z90.49 Acquired absence of other specified parts of digestive tract; Z80.9 Family history of malignant neoplasm, unspecified; Z84.1 Family history of disorders of kidney and ureter; F17.210 Nicotine dependence, cigarettes, uncomplicated; Z79.899 Other long term (current) drug therapy

== ENCOUNTER 2017-03-28 13:14 | Emergency (ER) | payer OTHER ==
[~2017-03-28] VITALS: Ht 165.1 cm; Wt 74.7 kg
[~2017-03-28 13:14] MED LIST changes: +PRT/40 PO
[2017-03-28 13:21] VITALS: TEMP 36.9; Ht 165.1 cm; Wt 74.7 kg
[2017-03-28] MEDS ORDERED: ONDANSETRON INJ 2 MG/ML 2 ML VIAL IV STA (13:50)
[2017-03-28] MEDS ORDERED: SODIUM CHLORIDE 0.9% 1000ML 1,000 ML IV STA (13:50)
[2017-03-28] MEDS ORDERED: MULT-920 PO (14:11)
--- NOTE | 2017-03-28 14:19 | EMERGENCY ROOM VISIT NOTE ---
History Report prepared by Agusto: Pauline Fernandes Under the Supervision of: Dr. Ramna Chou M.D. First contact with patient: 13:39 Chief Complaint: NAUSEA Stated Complaint: NAUSEA, DIARRHEA X 3 Nursing Triage Summary: pt c/o "gut problems. slow empty symptoms." pt states he sees [facility] for fecel transplant for Cdiff. fecal transplant Jun 2016. pt c/o nausea, vomiting x3, diarrhea x2 this today. History of Present Illness The patient is a 56 year old male who presents to the Emergency Room with complaints of persistent generalized weakness. The patient states that he " feels crappy" and has had nausea and increased drowsiness. He was previously taking Nexium and was started on pantoprazole a week ago. He states that he has had less relief of his symptoms since starting this new medication, and believes it might be related to his current symptoms. He also notes he has had a few episodes of diarrhea and more frequent urination. He denies any abdominal pain. The patient has a history of C Diff and a partial colostomy. He has also recently finished rabies prophylaxis after an unknown bite. Source of History: patient Onset: One week ago Position: other (generalized) Quality: other (weakness) Timing: other (persistent) Associated Symptoms: + nausea, + diarrhea, + urinary symptoms, No abdominal pain Review of Systems See HPI for pertinent positives & negatives. A total of 10 systems reviewed and were otherwise negative. Past Medical & Surgical Medical Problems: (1) C. difficile colitis (2) Colonoscopy (3) Diverticulosis of sigmoid colon (4) Kidney stones (5) Laceration Surgical Problems: (1) History of cholecystectomy (2) History of colon resection Family History Cancer Kidney disease Kidney stones Social History Smoking Status: Current Some Day Smoker Alcohol Use: occasionally Drug Use: none Marital Status: Housing Status: lives with family Occupation Status: employed Current/Historical Medications Scheduled Multiple Vitamins W/ Minerals (Airborne), 1 TAB PO DAILY Pantoprazole (Pantoprazole Sodium), 1 TAB PO DAILY Probiotic Product (Probiotic), 1 CAP PO DAILY Scheduled PRN Tramadol HCl (Tramadol HCl), 25 MG PO HS PRN for Abdominal Pain Allergies Coded Allergies: Iodinated Diagnostic Agents (Verified Allergy, Intermediate, GENERALIZED SWELLING, HIVES, 03/11/17) Metoclopramide (Verified Adverse Reaction, Unknown, MAKES "HYPER", 03/11/17 ) Physical Exam Vital Signs Date Time Temp Pulse Resp B/P (MAP) Pulse Ox O2 Delivery O2 Flow Rate FiO2 03/28/17 14:46 78 18 116/79 97 Room Air 03/28/17 14:27 85 03/28/17 13:21 36.9 110 20 132/76 95 Room Air Physical Exam GENERAL: Patient is a healthy-appearing well-nourished male HEAD: Normocephalic atraumatic EYES: Ocular movements intact pupils equal and react to light OROPHARYNX mucous membranes are moist no exudates present no erythema or edema present NECK: Supple no nuchal rigidity CHEST: Good equal expansion LUNGS: Clear and equal to auscultation CARDIAC: Normal S1 and S2 ABDOMEN: Soft nontender no guarding BACK: No CVA tenderness EXTREMITIES: No pain upon palpation normal muscle strength in all groups no clubbing cyanosis or edema NEURO: Patient is following commands and answering questions appropriately. Alert and oriented x3 Cranial Nerves 2-12 grossly intact Medical Decision & Procedures ER Provider Diagnostic Interpretation: Radiology results as stated below per my review and radiologist interpretation: ABDOMEN 2VIEW W/PA CHEST RTN HISTORY: 56 years-old Male acute nausea and vomiting with diarrhea for 3 days. COMPARISON: AP radiograph 07/28/2015, acute abdominal series radiographs 11/01/2014 TECHNIQUE: Frontal view of the chest with erect and supine views of the abdomen. FINDINGS: Cardiomediastinal and hilar silhouettes are within normal limits. There is minimal left basilar atelectasis or scarring in a subsegmental distribution. No pneumothorax, pleural effusion or focal airspace consolidation. The bones are grossly intact. Close is acting clips are noted. Left-sided nephrolithiasis redemonstrated measuring up to 5 mm. No calculi are seen along the course of either ureter. Surgical suture material seen within the mid pelvis. The bowel gas pattern is nonobstructive without pneumoperitoneum or pneumatosis. There is no fracture. IMPRESSION: 1. No acute cardiopulmonary process. 2. Nonobstructive bowel gas pattern. 3. Left-sided nephrolithiasis redemonstrated. The above report was generated using voice recognition software. It may contain grammatical, syntax or spelling errors. Electronically signed by: Gordo Skaggs M.D. Laboratory Results 03/28/17 13:40 Red Blood Count 4.57, Mean Corpuscular Volume 96.3, Mean Corpuscular Hemoglobin 33.7, Mean Corpuscular Hemoglobin Concent 35.0, Mean Platelet Volume 10.4, Neutrophils (%) (Auto) 60.7, Lymphocytes (%) (Auto) 30.0, Monocytes (%) (Auto) 7.5, Eosinophils (%) (Auto) 1.1, Basophils (%) (Auto) 0.5, Neutrophils # (Auto) 3.97, Lymphocytes # (Auto) 1.96, Monocytes # (Auto) 0.49, Eosinophils # (Auto) 0.07, Basophils # (Auto) 0.03 03/28/17 13:50 Test 03/28/17 13:40 03/28/17 13:50 03/28/17 14:10 White Blood Count 6.53 K/uL (4.8-10.8) Red Blood Count 4.57 M/uL (4.7-6.1) Hemoglobin 15.4 g/dL (14.0-18.0) Hematocrit 44.0 % (42-52) Mean Corpuscular Volume 96.3 fL (80-100) Mean Corpuscular Hemoglobin 33.7 pg (25-34) Mean Corpuscular Hemoglobin Concent 35.0 g/dl (32-36) Platelet Count 165 K/uL (130-400) Mean Platelet Volume 10.4 fL (7.4-10.4) Neutrophils (%) (Auto) 60.7 % Lymphocytes (%) (Auto) 30.0 % Monocytes (%) (Auto) 7.5 % Eosinophils (%) (Auto) 1.1 % Basophils (%) (Auto) 0.5 % Neutrophils # (Auto) 3.97 K/uL (1.4-6.5) Lymphocytes # (Auto) 1.96 K/uL (1.2-3.4) Monocytes # (Auto) 0.49 K/uL (0.11-0.59) Eosinophils # (Auto) 0.07 K/uL (0-0.5) Basophils # (Auto) 0.03 K/uL (0-0.2) RDW Standard Deviation 43.7 fL (36.4-46.3) RDW Coefficient of Variation 12.5 % (11.5-14.5) Immature Granulocyte % (Auto) 0.2 % Immature Granulocyte # (Auto) 0.01 K/uL (0.00-0.02) Anion Gap 7.0 mmol/L (3-11) Est Creatinine Clear Calc Drug Dose 87.5 ml/min Estimated GFR () 110.8 Estimated GFR (Non- 95.6 BUN/Creatinine Ratio 12.6 (10-20) Calcium Level 9.0 mg/dl (8.5-10.1) Total Bilirubin 0.5 mg/dl (0.2-1) Direct Bilirubin 0.1 mg/dl (0-0.2) Aspartate Amino Transf (AST/SGOT) 21 U/L (15-37) Alanine Aminotransferase (ALT/SGPT) 25 U/L (12-78) Alkaline Phosphatase 65 U/L (45-117) Total Protein 7.4 gm/dl (6.4-8.2) Albumin 3.7 gm/dl (3.4-5.0) Lipase 152 U/L (73-393) Urine Color YELLOW Urine Appearance CLEAR (CLEAR) Urine pH 8.0 (4.5-7.5) Urine Specific [place] 1.018 (1.000-1.030) Urine Protein NEG (NEG) Urine Glucose (UA) NEG (NEG) Urine Ketones NEG (NEG) Urine Occult Blood NEG (NEG) Urine Nitrite NEG (NEG) Urine Bilirubin NEG (NEG) Urine Urobilinogen NEG (NEG) Urine Leukocyte Esterase NEG (NEG) Labs reviewed by ED physician. Medications Administered Medications (Trade) Dose Ordered Sig/Kassie Route Start Time Stop Time Status Last Admin Dose Admin Sodium Chloride 1,000 ml @ 999 mls/hr Q1H1M STAT IV 03/28/17 13:50 03/28/17 14:50 DC 03/28/17 14:17 999 MLS/HR Ondansetron HCl (Zofran Inj) 4 mg NOW STAT IV 03/28/17 13:50 03/28/17 13:56 DC 03/28/17 14:17 4 MG ED Course 1344: Past medical records reviewed. The patient was evaluated in room B2. A complete history and physical examination was performed. 1350: Zofran Inj 4 mg IV, Sodium Chloride 1000 ml @ 999 mls/hr. 1457: Upon reexamination the patient is resting. I discussed results and treatment plan with the patient. He verbalizes agreement and understanding. The patient is ready for discharge. Medical Decision Differential diagnosis: Etiologies such as metabolic, infection, hypo/hyperglycemia, electrolyte abnormalities, cardiac sources, intracerebral event, toxicologic, neurologic, as well as others were entertained. This is a 56-year-old male who presents emergency department complaining of diarrhea. The patient has a significant history of C. difficile and is concerned that this is what he has again. He is had four bowel movements in the past 24 hours. The patient was observed for a total time of 3 hours in the emergency department and during that time he was unable to provide a stool sample. In addition he has a normal CBC normal renal profile normal liver profile. He was given a bolus of saline in the emergency department. I do feel he is well enough to be discharged home. The patient was given scripts for stool samples for home. The next day the patient did return stool samples which turned out to be positive for C. difficile. I recommended that the patient start taking his oral vancomycin which he has at home however the patient wishes to defer to the [facility] for further treatment. Impression Primary Impression: Gastroenteritis Scribe Attestation The scribe's documentation has been prepared under my direction and personally reviewed by me in its entirety. I confirm that the note above accurately reflects all work, treatment, procedures, and medical decision making performed by me. Departure Information Dispostion Home / Self-Care Referrals Kodak Betancourt M.D. (PCP) Forms HOME CARE DOCUMENTATION FORM, IMPORTANT VISIT INFORMATION Patient Instructions ED Gastroenteritis Report [place] Additional Instructions Culture results are usually available in approx 48 hours You have been examined and treated today on an emergency basis only. This is not a substitute for, or an effort to provide, complete comprehensive medical care. It is impossible to recognize and treat all injuries or illnesses in a single emergency department visit. It is therefore important that you follow up closely with Dr Betancourt. Call as soon as possible for an appointment. Thank you for your time and consideration. I look forward to speaking with you again soon. Please don't hesitate to call us if you have any questions.
[2017-03-28 14:34] LABS: BASO % 0.5 %; BASO ABS # 0.03 K/uL (0-0.2); COMPLETE YES; EOS % 1.1 %; IG% 0.2 %; LYMPH ABS # 1.96 K/uL (1.2-3.4); MEAN CELL VOLUME 96.3 fL (80-100); MEAN CORPUSCULAR HEMOGLOBIN 33.7 pg (25-34); MEAN PLATELET VOLUME 10.4 fL (7.4-10.4); MONO % 7.5 %; NEUT % 60.7 %; PLATELET COUNT 165 K/uL (130-400); RED BLOOD COUNT 4.57 M/uL (4.7-6.1); WHITE BLOOD COUNT 6.53 K/uL (4.8-10.8)
[2017-03-28 14:35] LABS: BUN/CREATININE RATIO 12.6 (10-20); CREATININE 0.89 mg/dl (0.60-1.40)
[2017-03-28 14:36] LABS: URINE APPEARANCE CLEAR (CLEAR); URINE BILIRUBIN NEG (NEG); URINE COLOR YELLOW; URINE NITRITE NEG (NEG); URINE SPECIFIC GRAVITY 1.018 (1.000-1.030); UROBILINOGEN NEG (NEG)
[2017-03-28 14:46] VITALS: BP 116/79; PULSE 78; O2SAT 97
[2017-03-28 14:48] LABS: MANUAL MICROSCOPIC REQUIRED? NO; REVIEW REQ? NO
--- NOTE | 2017-03-28 14:52 | DIAGNOSTIC IMAGING REPORT ---
ABDOMEN 2VIEW W/PA CHEST RTN HISTORY: 56 years-old Male acute nausea and vomiting with diarrhea for 3 days. COMPARISON: AP radiograph 07/28/2015, acute abdominal series radiographs 11/01/2014 TECHNIQUE: Frontal view of the chest with erect and supine views of the abdomen. FINDINGS: Cardiomediastinal and hilar silhouettes are within normal limits. There is minimal left basilar atelectasis or scarring in a subsegmental distribution. No pneumothorax, pleural effusion or focal airspace consolidation. The bones are grossly intact. Close is acting clips are noted. Left-sided nephrolithiasis redemonstrated measuring up to 5 mm. No calculi are seen along the course of either ureter. Surgical suture material seen within the mid pelvis. The bowel gas pattern is nonobstructive without pneumoperitoneum or pneumatosis. There is no fracture. IMPRESSION: 1. No acute cardiopulmonary process. 2. Nonobstructive bowel gas pattern. 3. Left-sided nephrolithiasis redemonstrated. The above report was generated using voice recognition software. It may contain grammatical, syntax or spelling errors. Electronically signed by: Gordo Skaggs M.D. 03/28/2017 2:50 PM Dictated Date/Time: 03/28/2017 2:48 PM
== END 2017-03-28 15:07 | disposition home or self-care (01) ==
LOC: C.EDB 13:15
DX: K52.9 Noninfective gastroenteritis and colitis, unspecified (principal); Z79.899 Other long term (current) drug therapy; Z90.49 Acquired absence of other specified parts of digestive tract; Z87.442 Personal history of urinary calculi; Z80.9 Family history of malignant neoplasm, unspecified; Z84.1 Family history of disorders of kidney and ureter; F17.210 Nicotine dependence, cigarettes, uncomplicated

== ENCOUNTER → 2017-04-09 | Outpatient (CLI) | payer OTHER ==
[~2017-04-09] MED LIST changes: +MULT-920 PO; -NXM/40 PO
== END | disposition home or self-care (01) ==
LOC: C.LAB1850 13:19
PROVIDERS: ATTEND Internal Medicine Cardiovascular Disease
DX: R19.7 Diarrhea, unspecified (principal)

== ENCOUNTER 2017-09-19 20:00 | Emergency (ER) | payer OTHER ==
[~2017-09-19] VITALS: Ht 165.1 cm; Wt 66.6 kg
[~2017-09-19 20:00] MED LIST changes: -MULT-920 PO; +PANT40TA2 PO; -PRT/40 PO
[2017-09-19 20:22] VITALS: Ht 165.1 cm; Wt 66.6 kg
[2017-09-19 22:41] VITALS: TEMP 36.9
[2017-09-19] MEDS ORDERED: KETOROLAC TROMETHAMINE 30 MG/ML VIAL IV STA (22:41)
[2017-09-19] MEDS ORDERED: ACETAMINOPHEN IV 1,000 MG in EMPTY BAG 0 ML IV ONE (22:45)
[2017-09-19] MEDS ORDERED: SODIUM CHLORIDE 0.9% 1000ML 1,000 ML, SODIUM CHLORIDE 0.9% 1000ML 1,000 ML IV ONE (22:45)
[2017-09-19] MEDS ORDERED: ACETAMINOPHEN 1000 MG/100 ML IV IV ONE (22:47)
[2017-09-19 22:56] LABS: BASO % 0.7 %; BASO ABS # 0.04 K/uL (0-0.2); EOS % 0.2 %; EOS ABS # 0.01 K/uL (0-0.5); HEMATOCRIT 45.2 % (42-52); HEMOGLOBIN 15.4 g/dL (14.0-18.0); IG# 0.01 K/uL (0.00-0.02); LYMPH % 9.2 %; LYMPH ABS # 0.55 K/uL (1.2-3.4); MEAN CELL VOLUME 97.8 fL (80-100); MEAN CORPUSCULAR HEMOGLOBIN 33.3 pg (25-34); MEAN CORPUSCULAR HGB CONC 34.1 g/dl (32-36); MEAN PLATELET VOLUME 10.1 fL (7.4-10.4); MONO % 10.3 %; MONO ABS # 0.62 K/uL (0.11-0.59); NEUT % 79.4 %; NEUT ABS # 4.77 K/uL (1.4-6.5); PLATELET COUNT 155 K/uL (130-400); RED CELL DISTRIBUTION WIDTH CV 12.7 % (11.5-14.5); RED CELL DISTRIBUTION WIDTH SD 45.5 fL (36.4-46.3)
[2017-09-19 23:10] LABS: ALBUMIN 3.7 gm/dl (3.4-5.0); CALCIUM 8.8 mg/dl (8.5-10.1); CREATININE 0.74 mg/dl (0.60-1.40); POTASSIUM 4.4 mmol/L (3.5-5.1)
[2017-09-19 23:13] LABS: TOTAL PROTEIN 7.5 gm/dl (6.4-8.2)
[2017-09-19 23:20] LABS: INFLUENZA B ANTIGEN Neg for Influ B (NEG)
[2017-09-20 00:37] VITALS: BP 125/75; PULSE 88; O2SAT 94
--- NOTE | 2017-09-20 06:56 | DIAGNOSTIC IMAGING REPORT ---
CHEST 2 VIEWS ROUTINE CLINICAL HISTORY: 57 years-old Male presenting with Fever. Cough. . TECHNIQUE: PA and lateral views of the chest were obtained. COMPARISON: 07/04/2017. FINDINGS: Atherosclerosis of the aortic arch. Cardiac silhouette normal in size. Mildly low lung volumes. Persistent bandlike opacities at the left lung base. No new focal infiltrate. No pleural effusion or pneumothorax. Degenerative changes of the thoracic spine. Cholecystectomy clips noted. IMPRESSION: 1. Mildly low lung volumes with persistent bandlike opacities at the left lung base, either atelectasis or scarring. No focal infiltrate to suggest pneumonia. Electronically signed by: Dorian Liriano M.D. 09/20/2017 6:55 AM Dictated Date/Time: 09/20/2017 6:54 AM
--- NOTE | 2017-09-21 05:02 | EMERGENCY ROOM VISIT NOTE ---
History First contact with patient: 22:27 Chief Complaint: FLU LIKE SX Stated Complaint: FLU - BAD History of Present Illness The patient is a 57 year old male who presents to the Emergency Room with complaints of flulike symptoms for the past several days. The patient has seen his primary care physician and was started on Zithromax earlier today. He states that he is taking the medication as prescribed but has not felt better. He has had intermittent high fever that only minimally improved with Advil pill and Tylenol at home. He is having some coughing but no distinct chest pain. No abdominal pain. He considers himself otherwise usually healthy. Review of Systems More than 10 systems were reviewed and otherwise negative with the exception of history of present illness. Past Medical/Surgical History Medical Problems: (1) C. difficile colitis (2) Colonoscopy (3) Diverticulosis of sigmoid colon (4) Kidney stones (5) Laceration Surgical Problems: (1) History of cholecystectomy (2) History of colon resection Family History Cancer Kidney disease Kidney stones Social History Smoking Status: Current Some Day Smoker Alcohol Use: occasionally Drug Use: none Marital Status: Housing Status: lives with family Occupation Status: employed Current/Historical Medications Scheduled Pantoprazole (Pantoprazole Sodium), 1 TAB PO DAILY Probiotic Product (Probiotic), 1 CAP PO DAILY Scheduled PRN Tramadol HCl (Tramadol HCl), 25 MG PO HS PRN for Abdominal Pain Physical Exam Vital Signs Date Time Temp Pulse Resp B/P (MAP) Pulse Ox O2 Delivery O2 Flow Rate FiO2 09/20/17 00:37 88 16 125/75 94 Room Air 09/19/17 23:53 91 20 117/69 96 Room Air 09/19/17 22:41 36.9 98 18 116/62 96 Room Air 09/19/17 20:22 37.5 116 18 105/65 94 Room Air Physical Exam VITALS: Vitals are noted on the nurse's note and reviewed by myself. Vital signs stable. GENERAL: Well-developed, well-nourished, white male who appears ill but not toxic. He is cooperative with the examination. EARS: External ear normal. External auditory canals clear, tympanic membranes pearly cisse without erythema or effusion bilaterally. EYES: Pupils equal round and reactive to light and accommodation. Conjunctivae without injection, sclerae without icterus. Extraocular movements intact. NOSE: Patent, turbinates without inflammation or discharge. MOUTH: Mucous membranes moist. Tonsils are not enlarged. Pharynx without erythema, blood, or exudate. Uvula midline. Airway patent. NECK: Supple without nuchal rigidity. No lymphadenopathy. No thyromegaly. Cervical spine is nontender. HEART: Regular rate and rhythm without murmurs gallops or rubs. LUNGS: Clear to auscultation bilaterally without wheezes, rales or rhonchi. No retractions or accessory muscle use. ABDOMEN: Positive normal bowel sounds x 4. Soft, nontender, without masses or organomegaly. No guarding or rebound tenderness. MUSCULOSKELETAL: No muscle atrophy, erythema, or edema noted. Full range of motion without joint tenderness in all extremities Medical Decision & Procedures ER Provider Diagnostic Interpretation: CHEST 2 VIEWS ROUTINE CLINICAL HISTORY: 57 years-old Male presenting with Fever. Cough. . TECHNIQUE: PA and lateral views of the chest were obtained. COMPARISON: 07/04/2017. FINDINGS: Atherosclerosis of the aortic arch. Cardiac silhouette normal in size. Mildly low lung volumes. Persistent bandlike opacities at the left lung base. No new focal infiltrate. No pleural effusion or pneumothorax. Degenerative changes of the thoracic spine. Cholecystectomy clips noted. IMPRESSION: 1. Mildly low lung volumes with persistent bandlike opacities at the left lung base, either atelectasis or scarring. No focal infiltrate to suggest pneumonia. Laboratory Results 09/19/17 22:30 Red Blood Count 4.62, Mean Corpuscular Volume 97.8, Mean Corpuscular Hemoglobin 33.3, Mean Corpuscular Hemoglobin Concent 34.1, Mean Platelet Volume 10.1, Neutrophils (%) (Auto) 79.4, Lymphocytes (%) (Auto) 9.2, Monocytes (%) (Auto) 10.3, Eosinophils (%) (Auto) 0.2, Basophils (%) (Auto) 0.7, Neutrophils # (Auto ) 4.77, Lymphocytes # (Auto) 0.55, Monocytes # (Auto) 0.62, Eosinophils # (Auto ) 0.01, Basophils # (Auto) 0.04 09/19/17 22:30 Test 09/19/17 22:30 09/19/17 23:00 White Blood Count 6.00 K/uL (4.8-10.8) Red Blood Count 4.62 M/uL (4.7-6.1) Hemoglobin 15.4 g/dL (14.0-18.0) Hematocrit 45.2 % (42-52) Mean Corpuscular Volume 97.8 fL (80-100) Mean Corpuscular Hemoglobin 33.3 pg (25-34) Mean Corpuscular Hemoglobin Concent 34.1 g/dl (32-36) Platelet Count 155 K/uL (130-400) Mean Platelet Volume 10.1 fL (7.4-10.4) Neutrophils (%) (Auto) 79.4 % Lymphocytes (%) (Auto) 9.2 % Monocytes (%) (Auto) 10.3 % Eosinophils (%) (Auto) 0.2 % Basophils (%) (Auto) 0.7 % Neutrophils # (Auto) 4.77 K/uL (1.4-6.5) Lymphocytes # (Auto) 0.55 K/uL (1.2-3.4) Monocytes # (Auto) 0.62 K/uL (0.11-0.59) Eosinophils # (Auto) 0.01 K/uL (0-0.5) Basophils # (Auto) 0.04 K/uL (0-0.2) RDW Standard Deviation 45.5 fL (36.4-46.3) RDW Coefficient of Variation 12.7 % (11.5-14.5) Immature Granulocyte % (Auto) 0.2 % Immature Granulocyte # (Auto) 0.01 K/uL (0.00-0.02) Anion Gap 6.0 mmol/L (3-11) Est Creatinine Clear Calc Drug Dose 95.8 ml/min Estimated GFR () 118.7 Estimated GFR (Non- 102.4 BUN/Creatinine Ratio 18.4 (10-20) Calcium Level 8.8 mg/dl (8.5-10.1) Total Bilirubin 0.6 mg/dl (0.2-1) Aspartate Amino Transf (AST/SGOT) 15 U/L (15-37) Alanine Aminotransferase (ALT/SGPT) 21 U/L (12-78) Alkaline Phosphatase 63 U/L (45-117) Total Protein 7.5 gm/dl (6.4-8.2) Albumin 3.7 gm/dl (3.4-5.0) Globulin 3.8 gm/dl (2.5-4.0) Albumin/Globulin Ratio 1.0 (0.9-2) Influenza Type A Antigen Neg for Influ A (NEG) Influenza Type B Antigen Neg for Influ B (NEG) Medications Administered Medications (Trade) Dose Ordered Sig/Kassie Route Start Time Stop Time Status Last Admin Dose Admin Sodium Chloride/ Sodium Chloride 2,000 ml @ 999 mls/hr Q2H1M ONCE IV 09/19/17 22:45 2 00:45 DC 09/19/17 22:53 999 MLS/HR Acetaminophen 1000 mg/Empty Bag 100 ml @ 400 mls/hr NOW ONCE IV 09/19/17 22:45 09/19/17 22:59 DC 09/19/17 22:53 400 MLS/HR Ketorolac Tromethamine (Toradol Inj) 30 mg NOW STAT IV 09/19/17 22:41 09/19/17 22:42 DC 09/19/17 22:53 30 MG ED Course Physical exam and history were performed. Nursing notes, EMR, and Medication List were personally reviewed. Patient appears to have flulike symptoms for the past several days. IV access was established and labs were obtained. The patient was hydrated medicated as above. X-ray was performed. Influenza swabs were gathered. The patient does not have a significant elevated white blood cell count, gross anemia, bandemia, or significant electrolyte imbalance. X-ray was performed and does not show acute infiltrate. The patient vitals remained essentially normal after intervention. His influenza swabs are negative. Overall the patient appears well for discharge home. I suspect that he has flulike symptoms. He is restarted antibiotics, and I did recommend that he complete them as prescribed. He is to follow with his primary care physician for ongoing care and evaluation. He is otherwise invited back to the ER with any new, worsening, or concerning symptoms. The chart was completed utilizing [employer] Voice Recognition Software. Grammatical errors, random word insertions, pronoun errors, and incomplete sentences are an occasional consequence of this system due to software limitations, ambient noise, and hardware issues. Any formal questions or concerns about the content, text, or information contained within the body of this dictation should be directly addressed to the provider for clarification. . Medical Decision Differential diagnosis: Etiologies such as viral syndrome, otitis, pharyngitis, pneumonia, influenza, meningitis, urinary tract infection, sepsis, bacteremia, as well as others were entertained. Impression Primary Impression: Influenza-like symptoms Departure Information Dispostion Home / Self-Care Condition GOOD Referrals Kodak Betancourt M.D. (PCP) Forms HOME CARE DOCUMENTATION FORM, IMPORTANT VISIT INFORMATION Patient Instructions My [facility] Additional Instructions You were seen and evaluated today on an emergency basis only. This is not a substitute for, or an effort to provide, complete comprehensive medical care. It is not possible to recognize and treat all injuries or illnesses in a single emergency department visit. For this reason it is recommended that you followup with your primary care physician's office later this week for recheck of your condition. For baseline pain relief you may alternate ibuprofen and acetaminophen every 4 hours for pain control. Take 600 mg ibuprofen (Advil) and then 4 hours later take 1000 mg acetaminophen (Tylenol). Do not take more than 3000 mg acetaminophen in a single day. Drink plenty of fluids and remain well hydrated. You are welcome to return to the emergency department anytime with new, worsening, or concerning symptoms.
== END 2017-09-20 01:05 | disposition home or self-care (01) ==
LOC: C.EDB 20:01 → C.EDA 09-20 01:05
DX: R69 Illness, unspecified (principal); A04.72 Enterocolitis due to Clostridium difficile, not specified as recurrent; K57.90 Diverticulosis of intestine, part unspecified, without perforation or abscess without bleeding; F17.200 Nicotine dependence, unspecified, uncomplicated

== ENCOUNTER 2018-04-10 19:47 | Emergency (ER) | payer OTHER ==
[~2018-04-10] VITALS: Ht 165.1 cm; Wt 71.9 kg
[~2018-04-10 19:47] MED LIST changes: +OXYC-90 PO
[2018-04-10 20:02] VITALS: TEMP 37; Ht 165.1 cm; Wt 71.9 kg
--- NOTE | 2018-04-10 21:07 | DIAGNOSTIC IMAGING REPORT ---
R SHOULDER MIN 2 VIEWS ROUTINE CLINICAL HISTORY: 57 years-old Male presenting with RIGHT, EVAL PAIN. TECHNIQUE: Internal rotation, external rotation, and Grashey views of the right shoulder were obtained. COMPARISON: Correlation made with chest x-ray from 09/19/2017. FINDINGS: Glenohumeral and acromioclavicular joints congruent. Mild osteophytosis noted at the inferior aspect of the humeral head. Joint space at the glenohumeral joint is preserved. No degenerative changes of the acromioclavicular joint. Minimal bony cystic change may be present at the greater tuberosity. No acute fracture or malalignment. No radiographic soft tissue abnormality. IMPRESSION: 1. Mild degenerative changes of the glenohumeral joint. 2. Findings could suggest mild chronic rotator cuff impingement. 3. No acute osseous injury. Electronically signed by: Dorian Liriano M.D. 04/10/2018 9:06 PM Dictated Date/Time: 04/10/2018 9:05 PM
--- NOTE | 2018-04-10 21:28 | EMERGENCY ROOM VISIT NOTE ---
ED Visit Note First contact with patient: 20:11 CHIEF COMPLAINT: Right shoulder injury this evening HISTORY OF PRESENT ILLNESS: Patient is a [id number] 57-year-old male who presents the emergency department for evaluation of right shoulder pain 2 hours. He has known right shoulder rotator cuff disease but has been trying to avoid any type of surgical intervention. He was mowing his lawn with a push mower this afternoon when he hit a tree stump with fairly significant force, causing immediate onset of pain in the right shoulder radiating down the right arm. He took some ibuprofen prior to coming to the emergency department. He believes that he has reinjured his rotator cuff, but would like to be evaluated to make sure that there are no other injuries. He complains of a constant, throbbing pain in the anterior lateral shoulder that he rates a 4/10. He denies any numbness or tingling radiating down the arm. He reports that he normally needs to use his left arm to lift his right arm above shoulder height, but since the injury he is unable to lift the shoulder due to his pain. REVIEW OF SYSTEMS: Review of systems as per HPI. All other systems reviewed were negative. At least 6 systems reviewed. PMH: Electronic medical records are reviewed and summarized as above/below. See Problem List. SOCIAL HISTORY: Patient lives at home with his . Employed. Smoker. PHYSICAL EXAM: Vital Signs: Reviewed nurse's notes. CONSTITUTIONAL: Patient is a well-appearing albeit uncomfortable, 57-year-old male who is awake and alert and in mild distress due to his shoulder injury. MUSCULOSKELETAL: Examination of the right shoulder does not reveal any obvious deformity. He has tenderness over the anterior and lateral aspect of the right shoulder over the rotator cuff insertion as well as over the acromioclavicular joint. He has pain with any attempts at range of motion, he tolerates passive internal and external rotation fairly well, but any forward flexion or abduction causes discomfort. The right upper extremity is neurovascularly intact. EMERGENCY DEPARTMENT COURSE: Right shoulder x-rays were obtained and noted mild degenerative changes in addition to findings consistent with chronic rotator cuff impingement. No acute fracture or malalignment. X-ray findings were reviewed with the patient. Patient may have reinjured his old rotator cuff injury, could have caused further rotator cuff tear with the trauma. He was fitted with an arm sling for comfort. He has medication for pain at home that he can use. He is established with Dr. Blood, and states that he will make plans to see him as soon as possible to discuss further care and intervention. Differential diagnoses entertained included fracture, sprain, dislocation, contusion, among others. Medication reconciliation: I attest that I have personally reviewed the patient' s current medication list. Blood pressure screening : Patient was found to have normal blood pressure on screening and does not require follow-up. Patient was reviewed in the [facility] Prescription Drug Monitoring Program. He receives fairly regular tramadol prescriptions from his PCP. R SHOULDER MIN 2 VIEWS ROUTINE CLINICAL HISTORY: 57 years-old Male presenting with RIGHT, EVAL PAIN. TECHNIQUE: Internal rotation, external rotation, and Grashey views of the right shoulder were obtained. COMPARISON: Correlation made with chest x-ray from 09/19/2017. FINDINGS: Glenohumeral and acromioclavicular joints congruent. Mild osteophytosis noted at the inferior aspect of the humeral head. Joint space at the glenohumeral joint is preserved. No degenerative changes of the acromioclavicular joint. Minimal bony cystic change may be present at the greater tuberosity. No acute fracture or malalignment. No radiographic soft tissue abnormality. IMPRESSION: 1. Mild degenerative changes of the glenohumeral joint. 2. Findings could suggest mild chronic rotator cuff impingement. 3. No acute osseous injury. (Kaity Villanueva PA) First contact with patient: 20:11 (Gold Davis M.D.) Problem List Medical Problems: (1) Abdominal pain Status: Resolved (2) Bee sting Status: Resolved (3) Bite wound of skin Status: Resolved (4) C. difficile colitis Status: Resolved (5) Cellulitis Status: Chronic (6) Cellulitis Status: Resolved (7) Cellulitis Status: Resolved (8) Colonoscopy Status: Resolved (9) Dehydration Status: Resolved (10) Diarrhea Status: Resolved (11) Diverticulitis Status: Resolved (12) Diverticulosis of sigmoid colon Status: Chronic (13) Epigastric pain Status: Resolved (14) Fall Status: Resolved (15) Gastroenteritis Status: Resolved (16) Gastroenteritis Status: Resolved (17) GERD (gastroesophageal reflux disease) Status: Chronic (18) Influenza-like symptoms Status: Resolved (19) Influenza-like symptoms Status: Resolved (20) Insect bites Status: Resolved (21) Kidney stones Status: Chronic (22) Laceration Status: Resolved (23) Laceration of middle finger of left hand without complication Status: Resolved (24) Left fibular fracture Status: Resolved (25) Left shoulder pain Status: Resolved (26) Left shoulder pain Status: Resolved (27) Multiple abrasions Status: Resolved (28) Nausea & vomiting Status: Resolved (29) Nausea, vomiting, and diarrhea Status: Resolved (30) Rabies, need for prophylactic vaccination against Status: Resolved (31) Rabies, need for prophylactic vaccination against Status: Resolved (32) Rabies, need for prophylactic vaccination against Status: Resolved (33) Rabies, need for prophylactic vaccination against Status: Resolved (34) Scalp contusion Status: Resolved (35) Severe headache Status: Resolved (36) Strain of left hamstring Status: Resolved (37) Vomiting Status: Resolved Surgical Problems: (1) History of cholecystectomy Status: Resolved (2) History of colon resection Status: Resolved (Gold Davis M.D.) Current/Historical Medications Scheduled Pantoprazole (Pantoprazole Sodium), 1 TAB PO DAILY Probiotic Product (Probiotic), 1 CAP PO DAILY Scheduled PRN Oxycodone Ir (Roxicodone Ir), 1-2 TAB PO Q4H PRN for Pain Tramadol HCl (Tramadol HCl), 25 MG PO HS PRN for Abdominal Pain Allergies Coded Allergies: Iodinated Diagnostic Agents (Verified Allergy, Intermediate, GENERALIZED SWELLING, HIVES, 02/16/18) Metoclopramide (Verified Adverse Reaction, Unknown, MAKES "HYPER", 02/16/18 ) Vital Signs Date Time Temp Pulse Resp B/P (MAP) Pulse Ox O2 Delivery O2 Flow Rate FiO2 04/10/18 21:37 87 18 111/79 95 Room Air 04/10/18 20:02 37.0 118 20 120/77 96 Room Air (Gold Davis M.D.) Departure Information Impression Primary Impression: Right shoulder injury Referrals Kodak Betancourt M.D. (PCP) Patient Instructions [facility] Additional Instructions Ibuprofen(Motrin, Advil) may be used for fever or pain. Use 600mg every six hours as needed. Take with food. Avoid using more than 2400mg in a 24 hour period. Do not use 2400mg per day for more than three consecutive days without physician direction. Prolonged inappropriate use can lead to stomach upset or ulcers. This medication can be taken if you need to drive, work, or perform activities which may be dangerous when taking narcotic pain medication. (AND/OR) Acetaminophen(Tylenol) may be used for fever or pain. Use 1000mg every six hours as needed. Avoid using more than 3000mg in a 24 hour period. This medication can be taken if you need to drive, work, or perform activities which may be dangerous when taking narcotic pain medication. Ice compresses for 20 minutes at a time four times daily for 2-3 days. Use the sling as instructed. Remove your arm from the sling 4-6 times a day and move all the joints around to keep them loose. Rest and elevate your injury. Continue current medications. Return to the ER immediately for any numbness, tingling, severe pain, extreme swelling in the extremity or as needed. Call Dr. Blood tomorrow to arrange follow up for your injury. Problem Qualifiers Primary Impression: Right shoulder injury Encounter type: initial encounter Qualified Codes: S49.91XA - Unspecified injury of right shoulder and upper arm, initial encounter
[2018-04-10 21:37] VITALS: BP 111/79; PULSE 87; O2SAT 95
== END 2018-04-10 21:40 | disposition home or self-care (01) ==
LOC: C.EDB 19:47 → C.EDD 21:40
DX: S49.91XA Unspecified injury of right shoulder and upper arm, initial encounter (principal); X50.1XXA Overexertion from prolonged static or awkward postures, initial encounter; Y92.096 Garden or yard of other non-institutional residence as the place of occurrence of the external cause; Y93.H2 Activity, gardening and landscaping; K57.30 Diverticulosis of large intestine without perforation or abscess without bleeding; K21.9 Gastro-esophageal reflux disease without esophagitis; Z87.442 Personal history of urinary calculi; F17.210 Nicotine dependence, cigarettes, uncomplicated; Z79.899 Other long term (current) drug therapy; Z91.048 Other nonmedicinal substance allergy status; Z88.8 Allergy status to other drugs, medicaments and biological substances